=== PATIENT | male | born 1995 | race Caucasian/White ===

== ENCOUNTER 2018-05-12 09:14 | Emergency (ER) | payer BC ==
[2018-05-12 09:20] VITALS: BP 133/76; PULSE 106; TEMP 97.8; BMI 28.5
[2018-05-12] MEDS ORDERED: KETOROLAC TROMETHAMINE 60 MG/2 ML VIAL IM ONE (09:34)
--- NOTE | 2018-05-12 09:34 | PDOC ---
History of Present Illness - General Chief Complaint: Back Pain Stated Complaint: BACK PAIN Time Seen by Provider: 05/12/18 09:24 History Source: Patient Exam Limitations: No Limitations - History of Present Illness Initial Comments: 05/12/18 09:24 22 yr male with chronic low back pain with sciatica and sores to genital area. pt denies urinary or bowel dysfunction. Pt states he lifted something heavy and felt pain to low back and radiates to the buttock 05/12/18 10:49 Occurred: reports: other Severity: reports: mild Pain Location: reports: back Past History - Past Medical History Allergies/Adverse Reactions: Allergies Allergy/AdvReac Type Severity Reaction Status Date / Time No Known Allergies Allergy Verified 05/12/18 09:19 Home Medications: Ambulatory Orders Naproxen [Naprosyn -] 500 mg PO BID #30 tablet 01/08/14 Acyclovir [Zovirax -] 800 mg PO BID #10 tablet 05/12/18 Cyclobenzaprine HCl [Flexeril -] 10 mg PO TID PRN #21 tablet 05/12/18 COPD: No - Immunization History Immunization Up to Date: Yes - Suicide/Smoking/Psychosocial Hx Smoking Status: No Smoking History: Never smoked Number of Cigarettes Smoked Daily: 0 Trauma Specific PMHX - Complaint Specific PMHX Arthritis: No Back Injury: No Neck Injury: No Hx Sacro Iliac Joint Dysfunction: No *Physical Exam - Vital Signs Last Vital Signs Temp Pulse Resp BP Pulse Ox 97.8 F 106 H 18 133/76 96 05/12/18 09:18 05/12/18 09:18 05/12/18 09:18 05/12/18 09:18 05/12/18 09:18 - Physical Exam General Appearance: Yes: Nourished, Appropriately Dressed HEENT: positive: EOMI, LOIS Neck: positive: Supple Respiratory/Chest: positive: Lungs Clear, Normal Breath Sounds Cardiovascular: positive: Regular Rhythm, Regular Rate Gastrointestinal/Abdominal: positive: Normal Bowel Sounds, Soft. negative: Tender Male Genitalia: positive: other (grouped vesicles to the suprapubic region at base of penis). negative: discharge, testicular tenderness Musculoskeletal: positive: Normal Inspection, Decreased Range of Motion, Other ( pos SLR left side at 90 degrees , nv intact ). negative: CVA Tenderness, CVA Tenderness (R), CVA Tenderness (L), Vertebral Tenderness Extremity: positive: Normal Capillary Refill, Normal Inspection, Normal Range of Motion Integumentary: positive: Normal Color, Dry, Warm Neurologic: positive: Fully Oriented, Alert, Normal Mood/Affect, Normal Response , Motor Strength 5/5 Medical Decision Making - Medical Decision Making 05/12/18 10:52 cc: acute on chronic low back pain with sciatica no urine or bowel dysfunction no saddle anesthesia pt ambulatory will give toradol now *DC/Admit/Observation/Transfer Diagnosis at time of Disposition: Genital herpes in men Low back pain Qualifiers: Chronicity: chronic Back pain laterality: left Sciatica presence: with sciatica Sciatica laterality: sciatica of left side Qualified Code(s): M54.42 - Lumbago with sciatica, left side - Discharge Dispostion Disposition: HOME Condition at time of disposition: Good - Prescriptions Prescriptions: Acyclovir [Zovirax -] 800 mg PO BID #10 tablet Cyclobenzaprine HCl [Flexeril -] 10 mg PO TID PRN #21 tablet PRN Reason: Muscle Spasms - Referrals Referrals: Noe Mcclellan MD [Primary Care Provider] - - Patient Instructions Printed Discharge Instructions: DI for Genital Herpes, DI for Back Pain With Sciatica Additional Instructions: take naprosyn 500mg every 12hrs for pain take flexeril for muscle spasm follow up with your doctor as planned avoid any heavy lifting or bending take the Acyclovir for herpes outbreak avoid any sexual activity until cleared please notify any sexual partners no shaving the genital area - Post Discharge Activity
[2018-05-12] MEDS ORDERED: KETOROLAC TROMETHAMINE 60 MG/2 ML VIAL ONE (09:36)
== END 2018-05-12 09:49 | disposition home or self-care (01) ==
LOC: JER 09:14 → JERFT 09:14
PROC: 3E0233Z Introduction of Anti-inflammatory into Muscle, Percutaneous Approach (ICD-10-PCS; principal; 2018-05-12)
DX: M54.42 Lumbago with sciatica, left side (principal); A60.00 Herpesviral infection of urogenital system, unspecified
CPT/HCPCS: 99281-25

== ENCOUNTER 2018-07-04 10:42 | Emergency (ER) | payer SELFPAY ==
[2018-07-04 11:22] VITALS: BP 142/72; PULSE 89; TEMP 97.7; BMI 25.7
[2018-07-04] MEDS ORDERED: KETOROLAC TROMETHAMINE 60 MG/2 ML VIAL IM ONE (12:19)
[2018-07-04] MEDS ORDERED: KETOROLAC TROMETHAMINE 60 MG/2 ML VIAL ONE (12:22)
--- NOTE | 2018-07-04 12:24 | PDOC ---
History of Present Illness - General Chief Complaint: Back Pain Stated Complaint: Back Pain Time Seen by Provider: 07/04/18 12:14 - History of Present Illness Initial Comments: 07/04/18 12:21 22-year-old male without comorbidities presents for evaluation of lower back pain with left posterior lateral leg radicular symptoms 2 days. He states 4 [place] disce[place] which was 2 levels, he's been fine up until about 2 weeks ago. His pain was precipitated by heavy lifting. He has no systemic symptoms or loss of bowel or bladder function Past History - Past Medical History Allergies/Adverse Reactions: Allergies Allergy/AdvReac Type Severity Reaction Status Date / Time No Known Allergies Allergy Verified 07/04/18 11:20 Home Medications: Ambulatory Orders Cyclobenzaprine HCl [Flexeril 10 mg] 10 mg PO HS PRN #10 tablet 07/04/18 Methylprednisolone [Medrol Dose Shukri] 4 mg PO ASDIR #21 tablet 07/04/18 COPD: No Other medical history: herniated discs - Immunization History Immunization Up to Date: Yes - Suicide/Smoking/Psychosocial Hx Smoking Status: No Smoking History: Never smoked Number of Cigarettes Smoked Daily: 0 Hx Alcohol Use: No Drug/Substance Use Hx: No Review of Systems - Review of Systems Constitutional: No: Fever Musculoskeletal: Yes: Back Pain *Physical Exam - Vital Signs Last Vital Signs Temp Pulse Resp BP Pulse Ox 97.7 F 89 18 142/72 97 07/04/18 11:20 07/04/18 11:20 07/04/18 11:20 07/04/18 11:20 07/04/18 11:20 - Physical Exam Comments: 07/04/18 12:22 Lumbar spine skin color and temperature are normal range of motion is limited. There is moderate right left paralumbar musculature spasm and tenderness. No midline tenderness. 5 out of 5 strength in bilateral lower extremities without gross sensorimotor deficits. Positive straight straight leg raise test on the left negative on the right. Thighs and calves are soft and nontender. He is neurovascularly intact. Moderate Sedation - Procedure Monitoring Vital Signs: Procedure Monitoring Vital Signs Temperature 97.7 F 07/04/18 11:20 Pulse Rate 89 07/04/18 11:20 Respiratory Rate 18 07/04/18 11:20 Blood Pressure 142/72 07/04/18 11:20 O2 Sat by Pulse Oximetry (%) 97 07/04/18 11:20 *DC/Admit/Observation/Transfer Diagnosis at time of Disposition: Low back pain, Lumbar radiculopathy - Discharge Dispostion Condition at time of disposition: Stable Decision to Admit order: No - Prescriptions Prescriptions: Cyclobenzaprine HCl [Flexeril 10 mg] 10 mg PO HS PRN #10 tablet PRN Reason: Muscle Spasms Methylprednisolone [Medrol Dose Shukri] 4 mg PO ASDIR #21 tablet - Referrals Referrals: Noe Mcclellan MD [Primary Care Provider] - Michael Conner MD [Staff Physician] - - Patient Instructions Printed Discharge Instructions: Lumbar Radiculopathy, DI for Lumbar Radiculopathy Additional Instructions: Please take the steroid pack in the morning and take the pills as directed. The muscle relaxers one tablet before bedtime and will make you sleepy. If you need additional medication you can only take Tylenol while on the steroid pack. Return to the emergency room should symptoms worsen or go unresolved. Please follow-up with spine surgery in 2-3 days for further evaluation and treatment options. Do not take any anti-inflammatory such as Advil Motrin Aleve or ibuprofen while on the steroid pack - Post Discharge Activity
== END 2018-07-04 12:26 | disposition home or self-care (01) ==
LOC: JERFT 10:42
PROC: 3E0233Z Introduction of Anti-inflammatory into Muscle, Percutaneous Approach (ICD-10-PCS; principal; 2018-07-04)
DX: M54.16 Radiculopathy, lumbar region (principal)
CPT/HCPCS: 99281-25

== ENCOUNTER 2018-08-19 09:16 | Emergency (ER) | payer SELFPAY ==
[2018-08-19 09:51] VITALS: BP 120/60; PULSE 79; TEMP 98.6; BMI 26.7
[2018-08-19] MEDS ORDERED: KETOROLAC TROMETHAMINE 60 MG/2 ML VIAL IM ONE (10:11)
[2018-08-19] MEDS ORDERED: KETOROLAC TROMETHAMINE 60 MG/2 ML VIAL ONE (10:15)
--- NOTE | 2018-08-19 10:20 | PDOC ---
History of Present Illness - General Chief Complaint: Back Pain Stated Complaint: BACK PAIN Time Seen by Provider: 08/19/18 09:40 History Source: Patient Exam Limitations: No Limitations Past History - Travel Traveled outside of the country in the last 30 days: No Close contact w/someone who was outside of country & ill: No - Past Medical History Allergies/Adverse Reactions: Allergies Allergy/AdvReac Type Severity Reaction Status Date / Time No Known Allergies Allergy Verified 08/19/18 09:22 Home Medications: Ambulatory Orders Cyclobenzaprine HCl [Flexeril 10 mg] 10 mg PO HS PRN #10 tablet 07/04/18 Acyclovir [Zovirax -] 200 mg PO 5XD #25 capsule 08/19/18 Diazepam [Valium] 2 mg PO DAILY #7 tablet MDD 1 08/19/18 Methylprednisolone [Medrol Dose Shukri] 4 mg PO ASDIR #21 tablet 08/19/18 COPD: No - Immunization History Immunization Up to Date: Yes - Suicide/Smoking/Psychosocial Hx Smoking Status: No Smoking History: Never smoked Have you smoked in the past 12 months: No Number of Cigarettes Smoked Daily: 0 Information on smoking cessation initiated: No Hx Alcohol Use: No Drug/Substance Use Hx: No Review of Systems - Review of Systems Able to Perform ROS?: Yes Comments:: 08/19/18 10:12 CONSTITUTIONAL: Absent: fever, chills, diaphoresis, generalized weakness, malaise, loss of appetite GASTROINTESTINAL: Absent: abdominal pain, abdominal distension, nausea, vomiting, diarrhea, constipation, melena, hematochezia GENITOURINARY: Absent: dysuria, frequency, urgency, hesitancy, hematuria, flank pain, genital pain MUSCULOSKELETAL: Present: low back pain Absent: arthralgia, joint swelling SKIN: Absent: rash, itching, pallor NEUROLOGIC: Absent: headache, focal weakness or paresthesias, dizziness, unsteady gait, seizure, mental status changes, bladder or bowel incontinence PSYCHIATRIC: Absent: anxiety, depression, suicidal or homicidal ideation, hallucinations. Is the patient limited Beninese proficient: No *Physical Exam - Vital Signs Last Vital Signs Temp Pulse Resp BP Pulse Ox 98.6 F 79 17 120/60 98 08/19/18 09:22 08/19/18 09:22 08/19/18 09:22 08/19/18 09:22 08/19/18 09:22 - Physical Exam Comments: 08/19/18 10:12 GENERAL: Well developed, well nourished. Awake and alert. No acute distress. HEENT: Normocephalic, atraumatic. PERRLA, EOMI. No conjunctival pallor. Sclera are non- icteric. Moist mucous membranes. Oropharynx is clear. NECK: Supple. Full ROM. No JVD. Carotid pulses 2+ and symmetric, without bruits. No thyromegaly. No lymphadenopathy. CARDIOVASCULAR: Regular rate and rhythm. No murmurs, rubs, or gallops. Distal pulses are 2+ and symmetric. PULMONARY: No evidence of respiratory distress. Lungs clear to auscultation bilaterally. No wheezing, rales or rhonchi. ABDOMINAL: Soft. Non-tender. Non-distended. No rebound or guarding. No organomegaly. Normoactive bowel sounds. MUSCULOSKELETAL Normal range of motion at all joints. No bony deformities or tenderness. No CVA tenderness. EXTREMITIES: No cyanosis. No clubbing. No edema. No calf tenderness. SKIN: Warm and dry. Normal capillary refill. No rashes. No jaundice. NEUROLOGICAL: Alert, awake, appropriate. Cranial nerves 2-12 intact. No deficits to light touch and temperature in face, upper extremities and lower extremities. No motor deficits in the in face, upper extremities and lower extremities. Normoreflexic in the upper and lower extremities. Normal speech. Toes are down- going bilaterally. Gait is normal without ataxia. PSYCHIATRIC: Cooperative. Good eye contact. Appropriate mood and affect. Moderate Sedation - Procedure Monitoring Vital Signs: Procedure Monitoring Vital Signs Temperature 98.6 F 08/19/18 09:22 Pulse Rate 79 08/19/18 09:22 Respiratory Rate 17 08/19/18 09:22 Blood Pressure 120/60 08/19/18 09:22 O2 Sat by Pulse Oximetry (%) 98 08/19/18 09:22 Medical Decision Making - Medical Decision Making 08/19/18 10:12 -Pt with TTP of the L paraspinous muscles, L3-L5, with palpable knot consistent with muscle spasm. -No trauma, or fever. No saddle anesthesia or bladder/bowel incontinence. No CVA tenderness. -Pt is neurologically intact on exam with no focal findings. -Toradol given with relief of symptoms -DC home. Ortho follow up given for if symptoms do not resolve. -I discussed the physical exam findings, ancillary test results and final diagnoses with the patient. I answered all of the patient's questions. The patient was satisfied with the care received and felt comfortable with the discharge plan and treatment plan. The Patient agrees to follow up with the primary care physician/specialist within 24-72 hours. Return precautions were given. *DC/Admit/Observation/Transfer Diagnosis at time of Disposition: Low back pain Qualifiers: Chronicity: acute Back pain laterality: left Sciatica presence: with sciatica Sciatica laterality: sciatica of left side Qualified Code(s): M54.42 - Lumbago with sciatica, left side - Discharge Dispostion Disposition: HOME Condition at time of disposition: Stable Decision to Admit order: No - Referrals Referrals: Tye Mancuso MD, FAANS [Staff Physician] - - Patient Instructions Printed Discharge Instructions: DI for Low Back Pain Additional Instructions: You have low back pain due to a muscle spasm. Please take medrol dose pack starting tomorrrow as prescribed. You were also prescribed Valium. Please take the medication before you go to bed. Do not drive after taking this medication as it may make you sleepy. You may use warm compresses on your back to help with her symptoms. Please follow-up with your primary care doctor. If your symptoms do not resolve in 3-5 days, follow-up with orthopedics. A referral has been provided for you. Return to the emergency department if you have worsening back pain, bladder or bowel incontinence, numbness and tingling in her legs, changes in the way you walk, or any new or worsening symptoms. - Post Discharge Activity Forms/Work/School Notes: Back to School
== END 2018-08-19 10:25 | disposition home or self-care (01) ==
LOC: JERFT 09:16
PROC: 3E0233Z Introduction of Anti-inflammatory into Muscle, Percutaneous Approach (ICD-10-PCS; principal; 2018-08-19)
DX: M54.42 Lumbago with sciatica, left side (principal)
CPT/HCPCS: 99281-25

== ENCOUNTER 2019-05-14 18:36 | Emergency (ER) | payer OTHER ==
[2019-05-14 18:40] VITALS: BP 130/66; PULSE 83; TEMP 98; BMI 28.0
[2019-05-14] MEDS ORDERED: METHOCARBAMOL 500 MG TABLET PO ONE (18:58)
[2019-05-14] MEDS ORDERED: KETOROLAC TROMETHAMINE 60 MG/2 ML VIAL IM ONE (18:58)
[2019-05-14] MEDS ORDERED: KETOROLAC TROMETHAMINE 60 MG/2 ML VIAL ONE (19:01)
[2019-05-14] MEDS ORDERED: METHOCARBAMOL 500 MG TABLET ONE (19:01)
--- NOTE | 2019-05-14 19:11 | PDOC ---
History of Present Illness - General Chief Complaint: Back Pain Stated Complaint: BACK PAIN Time Seen by Provider: 05/14/19 18:41 History Source: Patient Exam Limitations: No Limitations Past History - Past Medical History Allergies/Adverse Reactions: Allergies Allergy/AdvReac Type Severity Reaction Status Date / Time No Known Allergies Allergy Verified 05/14/19 18:40 Home Medications: Ambulatory Orders Cyclobenzaprine HCl [Flexeril 10 mg] 10 mg PO HS PRN #10 tablet 07/04/18 Acyclovir [Zovirax -] 200 mg PO 5XD #25 capsule 08/19/18 Diazepam [Valium] 2 mg PO DAILY #7 tablet MDD 1 08/19/18 Methylprednisolone [Medrol Dose Shukri] 4 mg PO ASDIR #21 tablet 08/19/18 Methocarbamol [Robaxin -] 1,500 mg PO QID PRN #24 tablet 05/14/19 Valacyclovir HCl [Valtrex] 500 mg PO BID #6 tablet 05/14/19 COPD: No - Immunization History Immunization Up to Date: Yes - Psycho Social/Smoking Cessation Hx Smoking Status: No Smoking History: Never smoked Have you smoked in the past 12 months: No Number of Cigarettes Smoked Daily: 0 Hx Alcohol Use: No Drug/Substance Use Hx: No Trauma Specific PMHX - Complaint Specific PMHX Arthritis: No Back Injury: No Neck Injury: No Hx Sacro Iliac Joint Dysfunction: No *Physical Exam - Vital Signs Last Vital Signs Temp Pulse Resp BP Pulse Ox 98 F 83 18 130/66 99 05/14/19 18:38 05/14/19 18:38 05/14/19 18:38 05/14/19 18:38 05/14/19 18:38 - Physical Exam General Appearance: No: Apparent Distress Respiratory/Chest: positive: Lungs Clear, Normal Breath Sounds. negative: Respiratory Distress Cardiovascular: positive: Regular Rhythm, Regular Rate, S1, S2. negative: Murmur Gastrointestinal/Abdominal: positive: Normal Bowel Sounds, Soft. negative: Tender, Distended, Guarding, Rebound Male Genitalia: positive: other (few vesicular lesions along mons pubis) Musculoskeletal: positive: Muscle Spasm (along lower B/L lumbar paraspinal muscles (more along left side)). negative: CVA Tenderness, Vertebral Tenderness Neurologic: positive: Alert, Normal Mood/Affect, Motor Strength 5/5, Other ( normal gait) ED Treatment Course - Medications Given in the ED: ED Medications Discontinued Medications Generic Name Dose Route Start Last Admin Trade Name Sloane PRN Reason Stop Dose Admin Ketorolac Tromethamine 60 mg 05/14/19 18:58 05/14/19 19:05 Toradol Injection - IM 05/14/19 18:59 60 mg ONCE ONE Administration Methocarbamol 1,000 mg 05/14/19 18:58 05/14/19 19:04 Robaxin - PO 05/14/19 18:59 1,000 mg ONCE ONE Administration Medical Decision Making - Medical Decision Making 23 y/o M with hx of spinal surgery around 08/2018 in [place] for herniated disc presents with nonradiating lower back pain x 2-3 days. Pain is not as bad as usual back pain. States is not sure if pain precipitated from the way he slept. Denies trauma, heavy lifting, sob, cp, abd pain, n/v, urinary sxs, bowel/ bladder incontinence, numbness/tingling/weakness of extremities. Patient also c/ o having itching/rash along pubic region after shaving site a few days ago; states he has hx of herpes and this feels similar (was treated in past as well) . Back spasms - Robaxin, toradol Genital rash - Herpes - will treat with Valtrex 05/14/19 19:06 Discharge - Discharge Information Problems reviewed: Yes Clinical Impression/Diagnosis: Back muscle spasm, Herpes Condition: Stable Disposition: HOME - Admission No - Additional Discharge Information Prescriptions: Methocarbamol [Robaxin -] 1,500 mg PO QID PRN #24 tablet PRN Reason: Muscle Spasms Valacyclovir HCl [Valtrex] 500 mg PO BID #6 tablet Prescription Drug Monitoring Program (I-STOP) results: I-STOP not reviewed - Follow up/Referral Referrals: Noe Mcclellan MD [Primary Care Provider] - 2 Days - Patient Discharge Instructions Patient Printed Discharge Instructions: DI for Back Spasm, DI for Genital Herpes Additional Instructions: Thank you for choosing [facility]. It was a pleasure taking care of you. You may take Motrin 600 mg every 6 hours by mouth as needed for mild to moderate pain. Take Motrin with food. Take Robaxin as needed for muscle spasms. This medication can also make you drowsy so please be cautious with driving or performing heavy physical work. Take Valtrex as prescribed. Avoid sexual intercourse until symptoms resolve Return to the Emergency Department if your symptoms worsen or persist, you have fever, shortness of breath, chest pain, severe abdominal pain, vomiting, weakness of extremities (arms and/or legs), unable to control bowel or bladder movements or other concerning symptoms. - Post Discharge Activity
== END 2019-05-14 19:30 | disposition home or self-care (01) ==
LOC: JERFT 18:36
PROC: 3E0233Z Introduction of Anti-inflammatory into Muscle, Percutaneous Approach (ICD-10-PCS; principal; 2019-05-14)
DX: M62.830 Muscle spasm of back (principal); A60.02 Herpesviral infection of other male genital organs
CPT/HCPCS: 99281-25